=== PATIENT | male | born 1965 | race African-American/Black ===

== ENCOUNTER 2021-05-17 17:24 | Emergency (ER) | payer MEDICAID ==
[~2021-05-17] VITALS: Ht 177.8 cm; Wt 108.9 kg
[2021-05-17 17:29] VITALS: BP 131/74
[2021-05-17] MEDS ORDERED: KETOROLAC TROMETH 60MG/2ML VIAL IM ONE (20:15)
[2021-05-17] MEDS ORDERED: IBUP800T27 PO (20:29)
[2021-05-17] MEDS ORDERED: GUAI600T23 PO (20:29)
[2021-05-17] MEDS ORDERED: ALBUAER3 IN (20:29)
== END 2021-05-17 20:47 | disposition home or self-care (01) ==
LOC: ER 17:24
DX: J06.9 Acute upper respiratory infection, unspecified (principal); F17.210 Nicotine dependence, cigarettes, uncomplicated; E66.9 Obesity, unspecified; E11.9 Type 2 diabetes mellitus without complications; Z68.34 Body mass index [BMI] 34.0-34.9, adult; Z20.822 Contact with and (suspected) exposure to COVID-19
CPT/HCPCS: 36415; 87426; 96372; 99283; J1885

== ENCOUNTER 2022-01-08 07:27 | Emergency (ER) | payer MEDICAID ==
[~2022-01-08] VITALS: Ht 177.8 cm; Wt 104.3 kg
[~2022-01-08 07:27] MED LIST: ALBUAER3 IN; GUAI600T23 PO; IBUP800T27 PO
[2022-01-08 07:57] VITALS: BP 132/81
[2022-01-08] MEDS ORDERED: PROM1SOL4 PO (08:11)
[2022-01-08] MEDS ORDERED: TOBR0.3S EACHEYE (08:11)
== END 2022-01-08 08:21 | disposition home or self-care (01) ==
LOC: ER 07:27
DX: H10.31 Unspecified acute conjunctivitis, right eye (principal); R05.1 Acute cough; F17.210 Nicotine dependence, cigarettes, uncomplicated; E11.9 Type 2 diabetes mellitus without complications; I10 Essential (primary) hypertension
CPT/HCPCS: 71046

== ENCOUNTER 2022-02-22 14:21 | Emergency (ER) | payer MEDICAID ==
[~2022-02-22] VITALS: Ht 177.8 cm; Wt 105.0 kg
[~2022-02-22 14:21] MED LIST changes: +PROM1SOL4 PO; +TOBR0.3S EACHEYE
[2022-02-22 16:19] VITALS: BP 109/76
[2022-02-22] MEDS ORDERED: KETOROLAC TROMETH 60MG/2ML VIAL IM ONE (16:45)
[2022-02-22] MEDS ORDERED: IBUP800T27 PO (17:23)
== END 2022-02-22 17:35 | disposition home or self-care (01) ==
LOC: ER 14:21
DX: M25.512 Pain in left shoulder (principal); I10 Essential (primary) hypertension; E11.9 Type 2 diabetes mellitus without complications; F17.210 Nicotine dependence, cigarettes, uncomplicated; Z79.1 Long term (current) use of non-steroidal anti-inflammatories (NSAID); Z79.899 Other long term (current) drug therapy
CPT/HCPCS: 73030; 96372; 99283; J1885

== ENCOUNTER 2024-01-12 08:35 | Emergency (ER) | payer OTHER, MEDICARE, MEDICAID ==
[~2024-01-12] VITALS: Ht 177.8 cm; Wt 95.0 kg
[~2024-01-12 08:35] MED LIST changes: -GUAI600T23 PO; +GUAI600T78 PO; +IBUP-1456 PO; -IBUP800T27 PO
[2024-01-12 09:56] VITALS: BP 16/83; PULSE 86; RESP 16; TEMP 99; O2SAT 96
[2024-01-12] MEDS: KETOROLAC TROMETH 30 MG/ML 1ML VIAL IV ONE (10:12)
[2024-01-12] MEDS: diphenhdrAMINE HCL 50 MG/1 ML VL IV ONE (10:12)
[2024-01-12] MEDS: PROCHLORPERAZINE EDISYLATE 5 MG/ML 2ML VIAL IV ONE (10:12)
[2024-01-12] MEDS: SODIUM CHLORIDE 0.9% 1,000 ML IV ONE (10:15)
[2024-01-12] MEDS ORDERED: MAGN400T40 PO (11:33)
[2024-01-12] MEDS ORDERED: RIBO400T PO (11:33)
== END 2024-01-12 11:44 | disposition home or self-care (01) ==
LOC: ER 08:35
DX: G43.909 Migraine, unspecified, not intractable, without status migrainosus (principal); I10 Essential (primary) hypertension; E11.9 Type 2 diabetes mellitus without complications
CPT/HCPCS: 70450; 96360; 99284; J0780; J1200; J1885